=== PATIENT | female | born 1945 | race Caucasian/White ===

== ENCOUNTER 2020-05-05 12:06 | Outpatient (CLI) | payer MEDICARE ==
--- NOTE | 2020-05-05 12:24 | RAD ---
XR Chest Pa Lat STANDARD History: Psoriasis Comparison: None. Findings: Lungs are clear. No pneumothorax or effusion. Cardiac silhouette and mediastinal contours a re within normal limits. No acute osseous abnormality. Partially calcified right breast implant. Impression: No acute intrathoracic abnormality.
== END 2020-05-05 12:07 | disposition home or self-care (01) ==
LOC: BICRAD 12:06
DX: L40.0 Psoriasis vulgaris (principal); Z79.899 Other long term (current) drug therapy
CPT/HCPCS: 71046

== ENCOUNTER 2021-04-20 10:52 | Outpatient (CLI) | payer MEDICARE | END 2021-04-20 10:53 | disposition home or self-care (01) | LOC: BICULT 10:52 | PROVIDERS: ATTEND Internal Medicine | DX: E04.2 Nontoxic multinodular goiter (principal) | CPT/HCPCS: 76536 ==

== ENCOUNTER 2021-05-23 10:01 | Outpatient (CLI) | payer MEDICARE | END 2021-05-23 10:02 | disposition home or self-care (01) | LOC: BICRAD 10:01 | PROVIDERS: ATTEND Physician Assistant | DX: L40.0 Psoriasis vulgaris (principal) | CPT/HCPCS: 71046 ==

== ENCOUNTER 2022-03-23 10:04 | Outpatient (CLI) | payer MEDICARE | END 2022-03-23 10:05 | disposition home or self-care (01) | LOC: BICMAMMO 10:04 | PROVIDERS: ATTEND Internal Medicine | DX: Z12.31 Encounter for screening mammogram for malignant neoplasm of breast (principal); Z98.82 Breast implant status | CPT/HCPCS: 77063; 77067 ==

== ENCOUNTER 2022-06-30 11:51 | Outpatient (CLI) | payer MEDICARE | END 2022-06-30 11:52 | disposition home or self-care (01) | LOC: ULT 11:51 | DX: E04.1 Nontoxic single thyroid nodule (principal) | CPT/HCPCS: 76536 ==

== ENCOUNTER 2024-06-03 14:46 | Outpatient (CLI) | payer MEDICARE | END 2024-06-03 14:47 | disposition home or self-care (01) | LOC: BICMAMMO 14:46 | PROVIDERS: ATTEND Family Medicine | DX: Z12.31 Encounter for screening mammogram for malignant neoplasm of breast (principal); E04.1 Nontoxic single thyroid nodule; Z98.82 Breast implant status; Z85.828 Personal history of other malignant neoplasm of skin | CPT/HCPCS: 76536; 77063; 77067 ==

== ENCOUNTER 2025-01-26 15:33 | Outpatient (CLI) | payer MEDICARE ==
[~2025-01-26 15:33] MED LIST: Iopamidol 370 76% 100 ML VIAL ONE
[2025-01-26 16:09] LABS: Estimated GFR - POC 46.0
== END 2025-01-26 15:34 | disposition home or self-care (01) ==
LOC: CT 15:33
PROVIDERS: ATTEND Family Medicine
DX: R10.84 Generalized abdominal pain (principal)
CPT/HCPCS: 36415; 74178; 82565; 87338; Q9967